=== PATIENT | female | born 1990 | race Caucasian/White ===

== ENCOUNTER 2021-01-24 07:49 | Outpatient (CLI) | payer BC, SELFPAY ==
[2021-01-24 18:50] LABS: Hematocrit 40.1 % (37.0-47.0); Hemoglobin 12.8 g/dL (12.0-15.0); Mean Corpuscular HGB Conc 31.9 g/dl (32-36); Mean Corpuscular Hemoglobin 31.5 pg (26-34); Mean Corpuscular Volume 98.8 fl (80-100); Mean Platelet Volume 10.1 fl (7.4-10.4); Platelet Count Result 315 k/mm3 (150-375); Red Blood Count 4.06 M/mm3 (4.2-5.4); Red Cell Distribution Width 12.5 % (11.5-14.5); White Blood Count 5.9 K/mm3 (4.5-10.0)
[2021-01-24 19:04] LABS: Alanine Aminotransferase 63 U/L (4-35); Albumin Level 4.6 g/dL (3.5-5.1); Alkaline Phosphatase 62 U/L (38-126); Anion Gap 10 mmol/L (8-16); Aspartate Amino Transferase 69 U/L (14-36); Bilirubin,Total 0.3 mg/dL (0.2-1.3); Blood Urea Nitrogen 11 mg/dL (7-17); Calcium 9.7 mg/dL (8.4-10.2); Carbon Dioxide 24 mmol/L (22-30); Chloride 104 mmol/L (98-107); Cholesterol 212 mg/dL (0-200); Estimated Glomerular Filt Rate > 60; Glucose 114 mg/dL (65-110); HDL Direct 41 mg/dL; Potassium 4.2 mmol/L (3.4-5.0); Sodium 138 mmol/L (137-145); Triglycerides 186 mg/dL (<150)
[2021-01-24 19:15] LABS: LDL Cholesterol Direct 150 mg/dL
[2021-01-25 13:05] LABS: Hemoglobin A1C 5.2 % (<5.7)
== END 2021-01-24 07:50 | disposition home or self-care (01) ==
LOC: ANHBWCLAB 07:53
PROVIDERS: PCP Family Medicine; Visit Provider Family Medicine
DX: G43.909 Migraine, unspecified, not intractable, without status migrainosus (principal); F41.9 Anxiety disorder, unspecified; F25.9 Schizoaffective disorder, unspecified; I10 Essential (primary) hypertension; E66.3 Overweight
CPT/HCPCS: 36415; 80053; 80061; 82306; 83036; 84443; 85027

== ENCOUNTER 2021-03-21 08:58 | Outpatient (CLI) | payer BC, SELFPAY ==
[2021-03-21 20:24] LABS: Alanine Aminotransferase 118 U/L (4-35); Albumin Level 4.9 g/dL (3.5-5.1); Alkaline Phosphatase 66 U/L (38-126); Aspartate Amino Transferase 95 U/L (14-36); Bilirubin,Total 0.4 mg/dL (0.2-1.3)
[2021-03-21 20:57] LABS: Hepatitis B Surface Antigen Negative (Negative)
[2021-03-21 21:03] LABS: HAV RESULT Negative (Negative); Hepatitis B Core IgM Result Negative (Negative)
[2021-03-21 21:14] LABS: Hepatitis C Virus Antibody Negative (Negative)
== END 2021-03-21 08:59 | disposition home or self-care (01) ==
LOC: ANHBWCLAB 08:59
PROVIDERS: PCP Family Medicine; Visit Provider Family Medicine
DX: E78.5 Hyperlipidemia, unspecified (principal); R74.8 Abnormal levels of other serum enzymes; G43.909 Migraine, unspecified, not intractable, without status migrainosus
CPT/HCPCS: 36415; 80074; 80076

== ENCOUNTER 2021-11-26 16:33 | Emergency (ER) | payer BC, SELFPAY ==
--- NOTE | 2021-11-26 16:35 | ED.SKABFB ---
HPI - Skin/Abscess/Foreign Bdy General Chief complaint: Skin/Abscess/Foreign Body Stated complaint: Rash Time Seen by Provider: 11/26/21 16:35 Source: patient and RN notes reviewed History of Present Illness HPI narrative: Patient is a 31-year-old female who presents the urgent care with complaints of a rash to the right arm that started approximately 4 weeks ago. Patient states that she does have a history of shingles and had it in 2018. Patient states that she has been under some increased stress. States that she has not taken anything kmbl-hvz-[id number] for her symptoms. States that it is very itchy and feels like btsu-nsb-kvpxjuh and is now spreading up the right arm into the right breast. No other acute complaints. No acute distress noted. Patient aware of the plan of care. Some parts of this dictation were generated by voice recognition software and may contain typographical and/or grammatical inaccuracies. Related Data Allergies Allergy/AdvReac Type Severity Reaction Status Date / Time Penicillins Allergy Unknown Pruritic Verified 11/26/21 16:45 rash Review of Systems Review of Systems: CONSTITUTIONAL: Denies fever, chills, or sweats. EYES: Denies visual changes, redness, or discharge. ENT: Denies rhinorrhea, congestion, sore throat, or otalgia. CARDIOVASCULAR: Denies chest pain, palpitations, or edema. RESPIRATORY: Denies cough or dyspnea. GASTROINTESTINAL: Denies abdominal pain, nausea, vomiting, or diarrhea. GENITOURINARY: Denies dysuria or hematuria. SKIN: Reports of itchy burning rash to the right arm radiating to the right breast MUSCULOSKELETAL: Denies back pain, joint pain, or myalgia. NEUROLOGIC: Denies headache, numbness, or weakness. All other systems reviewed are negative, except as documented in HPI. [facility] Past Medical History Medical History (Updated 11/26/21 @ 17:02 by DEANNA Pruitt) Anxiety Arthritis H/O migraine Headache, migraine Hypertension Schizoaffective disorder Family History Family History (Updated 01/17/21 @ 15:45 by Cortney Gaytan CMA) Mother Family history of schizophrenia Family history of gastrointestinal disorder Uterine cancer Depression Anxiety Pseudotumor cerebri Grandparent Family history of schizophrenia Family history of malignant neoplasm of breast in first degree relative Breast cancer Asthma Anxiety Depression Father Alcohol abuse Sibling Anxiety Depression Social History Social History (Updated 01/17/21 @ 15:46 by Cortney Gaytan [facility]) Smoking status: Never smoker Alcohol intake: current Substance use: never Comments At the time of my signature, I reviewed and agree with the nursing past medical, surgical, social, and family history. There is no relevant family history pertinent to the patient complaint. Exam Narrative: GENERAL: This is a well-nourished, well-developed patient, in no apparent distress. HEAD: normocephalic, atraumatic. EYES: PERRL. Sclera clear/white. Vision is grossly intact. EARS: External ears normal NOSE: External nose normal with no obvious nasal discharge, nares without redness, no rhinorrhea. THROAT: Mucous membranes moist NECK: Neck supple SKIN: Dried vesicular dermatitis to the right forearm right upper arm and right breast with mild surrounding erythema. warm, intact with no suspicious lesions or rash, good texture and turgor. NEURO: awake, alert, and oriented to person, place and time. There were no obvious focal neurologic abnormalities. EXTREMITIES: No clubbing, cyanosis, or edema. Course Course Level of Care: Express Care Visit Vital Signs Vital signs: Vital Signs Temperature 98.3 F 11/26/21 16:38 Pulse Rate 105 H 11/26/21 16:38 Respiratory Rate 14 11/26/21 16:38 Blood Pressure 136/95 H 11/26/21 16:38 Pulse Oximetry 97 11/26/21 16:38 Oxygen Delivery Room Air 11/26/21 16:38 Temperature 98.3 F 11/26/21 16:38 Pulse Rate 105 H 11/26/21 16:38 Respir
[2021-11-26 16:38] VITALS: BP 136/95; PULSE 105; RESP 14; TEMP 36.8; O2SAT 97
== END 2021-11-26 17:13 | disposition home or self-care (01) ==
PROVIDERS: Emergency Provider Nurse Practitioner Family; PCP Family Medicine
DX: B02.9 Zoster without complications (principal); I10 Essential (primary) hypertension; M19.90 Unspecified osteoarthritis, unspecified site
CPT/HCPCS: 99213; G0463

== ENCOUNTER 2022-03-07 14:37 | Emergency (ER) | payer BC, SELFPAY ==
[2022-03-07 14:59] VITALS: BP 164/106; PULSE 92; RESP 16; TEMP 36.7; O2SAT 99
--- NOTE | 2022-03-07 16:02 | ED.URI ---
HPI - URI/Sore Throat General Chief Complaint: Upper Respiratory Infection Stated Complaint: Cough/Fever/Headache Time Seen by Provider: 03/07/22 16:02 Source: patient and RN notes reviewed Mode of arrival: ambulatory Limitations: no limitations History of Present Illness HPI Narrative: 31-year-old female presents with concerns for 5 day history of fever, aches, cough, sinus congestion. She reports she has taken sypv-qdp-[id number] medications without relief. Denies known sick contacts MD elicited complaint: cough and sore throat Related Data Allergies Allergy/AdvReac Type Severity Reaction Status Date / Time Penicillins Allergy Unknown Pruritic Verified 11/26/21 16:45 rash Review of Systems Review of Systems: CONSTITUTIONAL: Reports malaise, chills, sweats, fever. EYES: Denies visual changes, redness, or discharge. ENT: Reports rhinorrhea, congestion, and sore throat. CARDIOVASCULAR: Denies chest pain, palpitations, or edema. RESPIRATORY: Reports cough. Denies dyspnea. GASTROINTESTINAL: Denies abdominal pain, nausea, vomiting, diarrhea SKIN: Denies rash or itching. MUSCULOSKELETAL: Reports myalgia. NEUROLOGIC: Denies headache. All systems reviewed & are unremarkable except as noted in HPI and below PMFSH Past Medical History Medical History (Updated 03/07/22 @ 16:24 by Eli Pierce NP) Anxiety Arthritis H/O migraine Headache, migraine Hypertension Schizoaffective disorder Family History Family History (Updated 01/17/21 @ 15:45 by Cortney Gaytan CMA) Mother Family history of schizophrenia Family history of gastrointestinal disorder Uterine cancer Depression Anxiety Pseudotumor cerebri Grandparent Family history of schizophrenia Family history of malignant neoplasm of breast in first degree relative Breast cancer Asthma Anxiety Depression Father Alcohol abuse Sibling Anxiety Depression Social History Social History (Updated 01/17/21 @ 15:46 by Cortney Gaytan CMA) Smoking status: Never smoker Alcohol intake: current Substance use: never Comments At time of signature, agree with nursing past medical, surgical, social and family history. There is no relevant family history pertinent to the presenting complaint Exam Narrative: GENERAL: Nontoxic-appearing and in no acute distress. HEAD: Normocephalic EYES: PERRLA, conjunctivae clear ENT: Nares clear, turbinates edematous and erythematous, clear discharge. Mucous membranes moist. TM pearly light with dull light reflex bilaterally; no tragal tenderness. Oropharynx not erythematous without lesions. Tonsils not enlarged and without exudate, no drooling, no hoarseness, no trismus, uvula midline. NECK: Supple. No lymphadenopathy CHEST: Clear to auscultation, breath sounds equal. No wheezing, rhonchi, rales, or stridor. No respiratory distress, speaks in full sentences. Cough noted HEART: Regular rate and rhythm. No murmur heard. SKIN: Warm, dry, no rash. NEURO: Alert and oriented x3. PSYCH: Normal mood and affect Course Course Emergency Course: Patient is aware of diagnosis, understands and agrees to treatment plan. Anticipatory guidance given. Patient agrees to follow-up as directed and is aware of reasons to seek care at the emergency department. Portions of this record may have been created with voice recognition software Level of Care: Express Care Visit Vital Signs Vital signs: Vital Signs Temperature 98.1 F 03/07/22 14:59 Pulse Rate 92 03/07/22 14:59 Respiratory Rate 16 03/07/22 14:59 Blood Pressure 164/106 H 03/07/22 14:59 Pulse Oximetry 99 03/07/22 14:59 Oxygen Delivery Room Air 03/07/22 14:59 Temperature 98.1 F 03/07/22 14:59 Pulse Rate 92 03/07/22 14:59 Respiratory Rate 16 03/07/22 14:59 Blood Pressure 164/106 H 03/07/22 14:59 Pulse Oximetry 99 03/07/22 14:59 Oxygen Delivery Room Air 03/07/22 14:59 Reviewed. MDM - URI/Sore Throat MDM Narrative Medical
== END 2022-03-07 16:31 | disposition home or self-care (01) ==
PROVIDERS: Emergency Provider Nurse Practitioner
DX: U07.1 COVID-19 (principal); I10 Essential (primary) hypertension
CPT/HCPCS: 87426; 99213; C9803; G0463

== ENCOUNTER 2022-06-10 10:26 | Emergency (ER) | payer BC, SELFPAY ==
[2022-06-10 10:32] VITALS: BP 152/101; PULSE 97; RESP 14; TEMP 37.5; O2SAT 98
[2022-06-10 10:36] VITALS: BP 152/101; PULSE 97; RESP 14; TEMP 37.5; O2SAT 98
--- NOTE | 2022-06-10 10:38 | ED.URI ---
HPI - URI/Sore Throat General Chief Complaint: Upper Respiratory Infection Stated Complaint: cold/flu History of Present Illness HPI Narrative: PATIENT PRESENTS WITH 3 DAY HISTORY OF NASAL CONGESTION COUGH NONPRODUCTIVE FEVER AND BODY ACHES. NO SHORTNESS OF BREATH AND NO CHEST PAIN. Related Data Allergies Allergy/AdvReac Type Severity Reaction Status Date / Time Penicillins Allergy Unknown Pruritic Verified 06/10/22 10:36 rash Review of Systems Review of Systems: CONSTITUTIONAL: DENIES CHILLS, OR SWEATS. REPORTS FEVER AND GENERALIZED BODY ACHES EYES: DENIES VISUAL CHANGES, REDNESS, OR DISCHARGE. ENT: DENIES OTALGIA. REPORTS NASAL CONGESTION RUNNY NOSE AND SORE THROAT CARDIOVASCULAR: DENIES CHEST PAIN, PALPITATIONS, OR EDEMA. RESPIRATORY: DENIES DYSPNEA. REPORTS OCCASIONAL COUGH GASTROINTESTINAL: DENIES ABDOMINAL PAIN, NAUSEA, VOMITING, OR DIARRHEA. GENITOURINARY: DENIES DYSURIA OR HEMATURIA. SKIN: DENIES RASH OR ITCHING. MUSCULOSKELETAL: DENIES BACK PAIN, JOINT PAIN, OR MYALGIA. REPORTS GENERALIZED BODY ACHES NEUROLOGIC: DENIES HEADACHE, NUMBNESS, OR WEAKNESS. PSYCHIATRIC: DENIES ANXIETY OR DEPRESSION. [facility] Past Medical History Medical History (Updated 06/10/22 @ 10:40 by DEANNA Duran) Anxiety Arthritis H/O migraine Headache, migraine Hypertension Schizoaffective disorder Family History Family History (Updated 01/17/21 @ 15:45 by Cortney Gaytan [facility]) Mother Family history of schizophrenia Family history of gastrointestinal disorder Uterine cancer Depression Anxiety Pseudotumor cerebri Grandparent Family history of schizophrenia Family history of malignant neoplasm of breast in first degree relative Breast cancer Asthma Anxiety Depression Father Alcohol abuse Sibling Anxiety Depression Social History Social History (Updated 01/17/21 @ 15:46 by Cortney Gaytan [facility]) Smoking status: Never smoker Alcohol intake: current Substance use: never Living arrangements: with family Comments AT TIME OF SIGNATURE, AGREE WITH NURSING PAST MEDICAL, SURGICAL, SOCIAL AND FAMILY HISTORY. THERE IS NO RELEVANT FAMILY HISTORY PERTINENT TO THE PRESENTING COMPLAINT Course Course Level of Care: Express Care Visit Vital Signs Vital signs: Vital Signs Temperature 37.5 C 06/10/22 10:32 Pulse Rate 97 06/10/22 10:32 Respiratory Rate 14 06/10/22 10:32 Blood Pressure 152/101 H 06/10/22 10:32 Pulse Oximetry 98 06/10/22 10:32 Oxygen Delivery Room Air 06/10/22 10:32 Temperature 37.5 C 06/10/22 10:36 Pulse Rate 97 06/10/22 10:36 Respiratory Rate 14 06/10/22 10:36 Blood Pressure 152/101 H 06/10/22 10:36 Pulse Oximetry 98 06/10/22 10:36 Oxygen Delivery Room Air 06/10/22 10:36 MDM - URI/Sore Throat Differential Diagnosis Differential diagnosis: Likely upper respiratory infection, croup, otitis media, sinusitis, viral infection, bronchitis, influenza and pharyngitis Discharge Plan Discharge Clinical Impression: Upper respiratory infection Patient Disposition: Home, Self-Care Condition: Stable Instructions: Upper Respiratory Infection (DC) Additional Instructions: TAKE MEDICATIONS PRESCRIBED. RETURN FOR WORSENING SIGNS OR SYMPTOMS RETURN IF FACIAL PAIN INCREASES, FEVER, WORSENING SYMPTOMS, SHORTNESS OF BREATH, CHEST PAIN, PRODUCTIVE COUGH OR DIFFICULTY SWALLOWING) AND AGREES WITH THE PLAN. CONGESTION - FLONASE AM AND PM FOR CHRONIC SINUS CONGESTION OR PROLONGED SYMPTOMS OF SINUSITIS (TAKES SEVERAL DAYS TO WORK). ONE TO THREE TIMES A DAY OF IRRIGATION OF SINUS WITH SALINE SPRAY, OCEAN NASAL SPRAY OR RODOLFO POT. FLUIDS. IF YOU DON'T HAVE HYPERTENSION-AFRIN NASAL SPRAY WITH A 3 DAY LIMIT FOR IMMEDIATE RELIEF OF SINUS CONGESTION. FOR RUNNY NOSE: DO OVER THE COUNTER ANTIHISTAMINE (CLARITIN, BENADRYL, ZYRTEC) FOR SNEEZING, RUNNY NOSE. ALLERGIES. SUDAFED OR DECONGESTANT CAN A
== END 2022-06-10 10:43 | disposition home or self-care (01) ==
PROVIDERS: Emergency Provider Nurse Practitioner Family; PCP Emergency Medicine
DX: J06.9 Acute upper respiratory infection, unspecified (principal); M19.90 Unspecified osteoarthritis, unspecified site; I10 Essential (primary) hypertension
CPT/HCPCS: 99213; G0463

== ENCOUNTER 2024-04-23 12:36 | Emergency (ER) | payer OTHER, SELFPAY ==
[2024-04-23 12:45] VITALS: BP 136/84; PULSE 93; RESP 16; TEMP 36.7; O2SAT 98
--- NOTE | 2024-04-23 13:54 | ED.URI ---
HPI - URI/Sore Throat General Chief Complaint: Upper Respiratory Infection Stated Complaint: Cough Source: patient, RN notes reviewed and old records reviewed Mode of arrival: ambulatory Limitations: no limitations History of Present Illness HPI Narrative: 34 year old female who presents to [facility] with complaints of cough, headache and body aches and runny nose and some sore throat she reports from coughing since . Patient reports that she has had had hot flashes. Patient reports that she takes daily Zyrtec and did use inhaler this morning with no known history of asthma. Patient reports that she has taken some OTC cold medication.. MD elicited complaint: cough, rhinorrhea and other (headache,sore throat, body aches.) Onset (ago): day(s) (04/16/2024) Severity: moderate Description of mucous: other (cohen) Able to tolerate fluids by mouth: Yes Treatments prior to arrival: cold medicine and other (inhaler, Zyrtec) Related Data Home Medications ?Medication ?Instructions ?Recorded ?Confirmed ?Last Taken ?Type sertraline 50 mg tablet 50 mg PO DAILY 04/23/24 04/23/24 Unknown History trazodone 150 mg tablet 150 mg PO QHS 04/23/24 Unknown History Allergies Allergy/AdvReac Type Severity Reaction Status Date / Time Penicillins Allergy Unknown Pruritic Verified 06/10/22 10:36 rash Review of Systems Review of Systems: CONSTITUTIONAL: Reports malaise, chills, sweats, no known fever. EYES: Denies visual changes, redness, or discharge. ENT: Reports rhinorrhea, congestion, sinus pain, no otalgia and positive for sore throat. CARDIOVASCULAR: Denies chest pain, palpitations, or edema. RESPIRATORY: Reports cough.? Denies dyspnea. GASTROINTESTINAL: Denies abdominal pain, nausea, vomiting, diarrhea SKIN: Denies rash or itching. MUSCULOSKELETAL: Reports myalgia. NEUROLOGIC: Reports headache. All systems reviewed & are unremarkable except as noted in HPI and below PMFSH Past Medical History Medical History Schizoaffective disorder Hypertension H/O migraine Arthritis Anxiety Headache, migraine Surgical History Surgical History H/O: hysterectomy Family History Family History Mother Family history of schizophrenia Family history of gastrointestinal disorder Uterine cancer Depression Anxiety Pseudotumor cerebri Grandparent Family history of schizophrenia Family history of malignant neoplasm of breast in first degree relative Breast cancer Asthma Anxiety Depression Father Alcohol abuse Sibling Anxiety Depression Social History Social History Smoking status: Never smoker Alcohol intake: current Substance use: never Living arrangements: with family Comments At time of signature, agree with nursing past medical, surgical, social and family history. There is no relevant family history pertinent to the presenting complaint Exam Narrative: GENERAL: Well-appearing, well-nourished, and in no acute distress. HEAD: Normocephalic EYES: PERRLA, conjunctivae clear ENT: Nares clear, turbinates edematous and erythematous, clear discharge, sinus pressure and headache,. Mucous membranes moist. TM pearly light with dull light reflex bilaterally; no tragal tenderness. Oropharynx erythematous without lesions. Tonsils not enlarged and without exudate, no drooling, no hoarseness, no trismus, uvula midline.post nasal drainage NECK: Supple. No lymphadenopathy CHEST: Clear to auscultation, breath sounds equal. No wheezing, rhonchi, rales, or stridor. No respiratory distress, speaks in full sentences.cough, SAO2 98% on room air HEART: Regular rate and rhythm. No murmur heard. SKIN: Warm, dry, no rash. NEURO: Alert and oriented x3. PSYCH: Normal mood and affect Course Course Emergency Course: Patient is aware of diagnosis, understands and agrees to treatment plan.? Anticipatory guidance given.? Patient agrees to follow-up as directed and is aware of reasons to seek care at the emergency department. Portions of this record may have been created with voice recognition software Level of Care: Express Care Visit Vital Signs Vital signs: Vital Signs Temperature 36.7 C 04/23/24 12:45 Pulse Rate 93 04/23/24 12:45 Respiratory Rate 16 04/23/24 12:45 Blood Pressure 136/84 04/23/24 12:45 Pulse Oximetry 98 04/23/24 12:45 Oxygen Delivery Room Air 02/05/25 12:45 Temperature 36.7 C 04/23/24 12:45 Pulse Rate 93 04/23/24 12:45 Respiratory Rate 16 04/23/24 12:45 Blood Pressure 136/84 04/23/24 12:45 Pulse Oximetry 98 04/23/24 12:45 Oxygen Delivery Room Air 04/23/24 12:45 Reviewed MDM - URI/Sore Throat MDM Narrative Medical decision making narrative: Differential diagnosis considered: Guaman virus, strep pharyngitis, allergic rhinitis, upper respiratory tract infection, sinusitis, rhinosinusitis, nasopharyngitis. viral pharyngitis, otitis media, otitis externa, pneumonia, bronchitis, viral cough syndrome, viral syndrome, and influenza.? Exam findings show no acute concerns or changes; patient is non-toxic appearing and is in no distress.? Patient is appropriate for outpatient treatment and follow-up. Differential Diagnosis Differential diagnosis: Likely upper respiratory infection, sinusitis, viral infection, pharyngitis and other (acute cough) Medical Records Attestation: I reviewed the patient's medical records. Lab Data Attestation: I reviewed the patient's lab results. Critical Care Time Critical Care Time Critical Care Time: No Discharge Plan Discharge Clinical Impression: Sinusitis Qualifiers: Sinusitis location: pansinusitis Chronicity: acute Recurrence: not specified as recurrent Qualified Code(s): J01.40 - Acute pansinusitis, unspecified Patient Disposition: Home, Self-Care Condition: Stable Instructions: Antibiotic Form, Sinusitis (ED) Additional Instructions: Increase fluids especially juices and water Drgt-wzd-sjlpeox cough and cold medicine of your choice for your symptoms Zyrtec Claritin or Elisa daily Tylenol or ibuprofen for any fever pain OTC cough medications such as Delsym heat to the face 20-30 minutes 4-6 times a day for pain Salt water gargles, throat lozenges or throat sprays as desired Antibiotic as directed--finished the medication If your symptoms persist, change or worsen significantly before you can contact your personal physician then please, without delay, go to the emergency department for further evaluation. Follow-up with PCP in 7-10 days or sooner if needed Follow up with PCP soon in regards to your blood pressure which is elevated above threshold for referral. Blood pressure above 120/80 may indicate pre-hypertension. 136/84 Patient Language: [place] African Prescriptions: New azithromycin 250 mg tablet See Rx Instructions .ROUTE .COMPLEX Qty: 6 0RF Rx Instructions: For 250 mg dose pack: take 500 mg today (day 1), then 250 mg for 4 days (days 2-5) No Action sertraline 50 mg tablet 50 mg PO DAILY trazodone 150 mg tablet 150 mg PO QHS benzonatate 100 mg capsule 100 mg PO TID PRN (Reason: cough) 5 Days Qty: 10 0RF dexamethasone 4 mg tablet 8 mg PO ONCE Qty: 2 0RF Zyrtec 10 mg capsule 10 mg PO DAILY 14 Days Qty: 14 0RF Follow-up/Referrals: Antoinette Goodson RN [Primary Care Provider] - Stand Alone Forms: Work/School Release IP Time of Disposition: 14:00 Quality Armaan Coma Scale Eyes: Open Verbal: Oriented and Alert Motor: Follows Commands [place] Coma Total Score: 15
== END 2024-04-23 14:05 | disposition home or self-care (01) ==
PROVIDERS: Emergency Provider Registered Nurse
DX: J01.40 Acute pansinusitis, unspecified (principal); I10 Essential (primary) hypertension
CPT/HCPCS: 99213; G0463

== ENCOUNTER 2025-01-19 17:17 | Emergency (ER) | payer OTHER, SELFPAY ==
--- OUTSIDE RECORDS SUMMARY | 2023-10-17 05:40 | XMS_ITS ---
Author Organization [facility] Address [address] [place] [address] Care Team Providers Care Visual Specialist Name Role Phone Asya Henderson Primary Care Provider [phone] Diana Batista Unavailable [phone] REASON FOR VISIT 1 month f/u Vivitrol Social History Sex Assigned At : Social History Observation Description Sex Assigned At Female Encounters Encounter Location Date Provider Diagnosis [address] [place] [address] 10/17/2023 Diana Batista Plan Of Treatment No Information Progress Notes * Sophia AZULDOB:1990 ( 34 yo F)Acc No.[id number]:10/17/2023 UNLOCKED PROGRESS NOTE Patient: Sophia PACHECO Provider: TAD Bo, FLUOROSCOPE OPERATOR, DELICATESSEN STORE MANAGER-C :1990 A ge:33 Y S ex:Female Date:10/17/2023 Phone: Address:[address] [place] [id number] Pcp:Asya Henderson Subjective: * Chief Complaints: * 1 . 1 month f/u Vivitrol. * Medical History: Objective: * Vitals: Assessment: Plan: * Treatment: * Care Plan Details* * Electronic signature of Cinthya Batista APRN, [id number] on 01/19/2025 at 05:23 PM SIGN LETTERER Sign off status: Pending * Provider: Ricky Batista, MSN, FLUOROSCOPE OPERATOR, DELICATESSEN STORE MANAGER-C Date: 0 10/17/2023 Generated for Shahrzad luke/David/Efrainitting on: 1 03/21/2024 05:23 PM SIGN LETTERER
--- OUTSIDE RECORDS SUMMARY | 2023-12-14 07:20 | XMS_ITS ---
Author Organization formerly [facility] Address [address] [place] [address] Care Team Providers Care Service Dispatcher Name Role Phone Asya Hendesron Primary Care Provider Diana Batista Unavailable [phone] REASON FOR VISIT Vivitrol Social History Sex Assigned At : Social History Observation Description Sex Assigned At Female Encounters Encounter Location Date Provider Diagnosis [address] [place] [address] 12/14/2023 Diana Batista Plan Of Treatment No Information Progress Notes * Sophia AZULDOB:1990 ( 34 yo F)Acc No.[id number]:12/14/2023 UNLOCKED PROGRESS NOTE Patient: Sophia PACHECO Provider: TAD Bo, INDUSTRIAL ENGINEERING INTERN, PHARMACEUTICAL BOTANIST-C :1990 A ge:33 Y S ex:Female Date:12/14/2023 Phone: Address:[address] [place] [phone] Pcp:Asya Henderson Subjective: * Chief Complaints: * 1 . Vivitrol. * Medical History: Objective: * Vitals: Assessment: Plan: * Treatment: * Care Plan Details* * Electronic signature of Cinthya Batista APRN, [id number] on 01/19/2025 at 05:23 PM BOBBIN WINDER Sign off status: Pending * Provider: Ricky Batista MSN, INDUSTRIAL ENGINEERING INTERN, PHARMACEUTICAL BOTANIST-C Date: 0 12/14/2023 Generated for Shahrzad luke/David/Tia on: 1 03/21/2024 05:23 PM BOBBIN WINDER
[2025-01-19 17:25] VITALS: BP 126/80; PULSE 66; RESP 18; TEMP 36.1; O2SAT 99
[2025-01-19 17:41] VITALS: BP 126/80; PULSE 66; RESP 16; TEMP 36.1; O2SAT 99
--- NOTE | 2025-01-19 18:18 | ED.UPPEXIN ---
HPI - Extremity Injury (Upper) General Chief Complaint: Extremity Injury, Upper Stated Complaint: L shoulder pain Time Seen by Provider: 01/19/25 18:18 Source: patient, RN notes reviewed and old records reviewed Mode of arrival: ambulatory Limitations: no limitations History of Present Illness HPI narrative: 34-year-old female presents to the [facility] with left shoulder pain. Pain started 6 weeks ago when she was painting. States that she lifted something and felt a pop in the lateral aspect of her shoulder. No bruising or swelling noted. Pain starts when she is at 90? of lifting Related Data Home Medications ?Medication ?Instructions ?Recorded ?Confirmed ?Last Taken ?Type sertraline 50 mg tablet 50 mg PO DAILY 04/23/24 04/23/24 Unknown History trazodone 150 mg tablet 150 mg PO QHS 04/23/24 Unknown History Allergies Allergy/AdvReac Type Severity Reaction Status Date / Time Penicillins Allergy Unknown Pruritic Verified 01/19/25 17:40 rash Review of Systems Review of Systems: All systems reviewed & are unremarkable except as noted in HPI and below Constitutional: Constitutional: Reports no additional constitutional complaints Cardiovascular: Cardiovascular: Denies chest pain Respiratory: Respiratory: Reports no additional respiratory complaints, Denies chest congestion, Denies cough and Denies dyspnea Musculoskeletal: Musculoskeletal: Reports as per HPI and Reports arthralgias (Lateral left shoulder, deltoid area) Integumentary/Breasts: Skin/Breast: Reports system reviewed and no additional complaints, except as docu Neurologic: Reports system reviewed and no additional complaints, except as documented PMFSH Past Medical History Medical History Schizoaffective disorder Hypertension H/O migraine Arthritis Anxiety Headache, migraine Surgical History Surgical History H/O: hysterectomy Family History Family History Mother Family history of schizophrenia Family history of gastrointestinal disorder Uterine cancer Depression Anxiety Pseudotumor cerebri Grandparent Family history of schizophrenia Family history of malignant neoplasm of breast in first degree relative Breast cancer Asthma Anxiety Depression Father Alcohol abuse Sibling Anxiety Depression Social History Social History Smoking status: Never smoker Alcohol intake: current Substance use: never Living arrangements: with family Comments At the time of my signature, I reviewed and agree with the nursing past medical, surgical, social, and family history. There is no relevant family history pertinent to the patient complaint. Exam Const: General: cooperative, healthy appearing, comfortable, no acute distress, well developed, alert and well nourished Nutritional Appearance: well nourished Orientation/consciousness: patient oriented x3 Limitations: no limitations HENMT: Head: normal to inspection Eyes: General: appearance normal, both eyes and all related structures Alignment and Position: alignment normal Neck: Neck: normal visual inspection, full ROM, no lymphadenopathy and no meningeal signs Chest: Chest palpation & inspection: normal inspection of the chest Resp: Effort & Inspection: normal respiratory effort and able to speak in complete sentences Auscultation: clear to auscultation bilaterally, no crackles, no rales, no rhonchi and no wheezes Cardio: Rate: regular rate Skin: General skin exam: normal color and no rashes or lesions noted Neuro: General: patient oriented x3, gait normal, moves all extremities and no meningeal signs Cognition (Neuro): normal cognition Speech: normal speech Gait exam (Neuro): Normal gait present Extrem: General: normal to inspection, full ROM, capillary refill normal and normal gait Left upper extremity: shoulder/upper arm tenderness over the deltoid bursa and abnormal ROM (Able to raise 90? but with discomfort) pain with active ROM and pain with passive ROM; no swelling, no lacerations, no ecchymosis, no crepitus, no foreign bodies, no penetrating wound and no deformity, elbow/forearm normal to inspection and normal ROM; no tenderness, wrist normal to inspection and hand normal to inspection, normal capillary refill, normal ROM of fingers and other (Strong group work program aide noted) Other: Able to shrug shoulders, note neck tenderness Psych: Appearance: grossly normal and well kempt Mental Status: mental status grossly normal Speech and movement: Normal speech and movement present and Clear speech present Affect: normal affect Attitude: cooperative Course Course Level of Care: Express Care Visit Vital Signs Vital signs: Vital Signs Temperature 97.0 F L 01/19/25 17:25 Pulse Rate 66 01/19/25 17:25 Respiratory Rate 18 01/19/25 17:25 Blood Pressure 126/80 01/19/25 17:25 Pulse Oximetry 99 01/19/25 17:25 Oxygen Delivery Room Air 01/19/25 17:25 Temperature 97 F L 01/19/25 17:41 Pulse Rate 66 01/19/25 17:41 Respiratory Rate 16 01/19/25 17:41 Blood Pressure 126/80 01/19/25 17:41 Pulse Oximetry 99 01/19/25 17:41 Oxygen Delivery Room Air 01/19/25 17:41 Reviewed MDM - Extremity Injury (Upper) MDM Narrative Medical decision making narrative: Patient sitting in exam room. Patient is nontoxic, vitals are stable. Patient presents with 6 weeks of left lateral shoulder pain after painting. States that today she went to pick something up and felt a burning and a pop. Has been taking Tylenol and or ibuprofen. No direct trauma. Most likely ligament or muscular. No x-rays are indicated due to no trauma. Patient appropriate for outpatient treatment with close follow Discharge instructions reviewed with patient, as well as provided in writing per nursing staff. The instructions also include specific and strict return/GO TO THE ER as well as f/u information. All questions have been answered, and the patient deny any further questions with discharge and discharge plan. Some parts of this dictation were generated by voice recognition software and may contain typographical and/or grammatical inaccuracies. Differential Diagnosis Differential diagnosis: Likely sprain and strain of wrist, dislocation of shoulder, fracture of humerus and other (Tendinitis) Critical Care Time Critical Care Time Critical Care Time: No Discharge Plan Discharge Clinical Impression: Left shoulder strain Qualifiers: Encounter type: initial encounter Qualified Code(s): S46.912A - Strain of unspecified muscle, fascia and tendon at shoulder and upper arm level, left arm, initial encounter Patient Disposition: Home Condition: Stable Instructions: Rotator Cuff Injury (ED), Rotator Cuff Injury Exercises (DC) Additional Instructions: you can apply warm moist heat. Using topical such as Biofreeze Adrien-Winter or Aspercreme can help. Take the muscle relaxer as prescribed Please schedule a follow-up visit with your personal physician for further evaluation and treatment within 2 weeks especially if symptoms persist. For new or worsening symptoms go directly to the emergency room Patient Language: Italian Prescriptions: New baclofen 10 mg tablet 10 mg PO TID PRN (Reason: muscle pain) Qty: 10 0RF ibuprofen 600 mg tablet 600 mg PO TID PRN (Reason: fever or pain) Qty: 30 0RF No Action sertraline 50 mg tablet 50 mg PO DAILY trazodone 150 mg tablet 150 mg PO QHS dexamethasone 4 mg tablet 8 mg PO ONCE Qty: 2 0RF Zyrtec 10 mg capsule 10 mg PO DAILY 14 Days Qty: 14 0RF Follow-up/Referrals: Kellee,Antoinette Gonzalez APRN [Primary Care Provider, Unknown] - 2 Weeks Stand Alone Forms: Work/School Release IP Time of Disposition: 18:27
== END 2025-01-19 18:43 | disposition home or self-care (01) ==
PROVIDERS: Emergency Provider Nurse Practitioner; PCP Nurse Practitioner Family
DX: S46.912A Strain of unspecified muscle, fascia and tendon at shoulder and upper arm level, left arm, initial encounter (principal); X50.9XXA Other and unspecified overexertion or strenuous movements or postures, initial encounter; I10 Essential (primary) hypertension; M19.90 Unspecified osteoarthritis, unspecified site; F41.9 Anxiety disorder, unspecified
CPT/HCPCS: 99213; G0463